=== PATIENT | male | born 1970 | race Caucasian/White ===

== ENCOUNTER 2017-02-21 10:00 | Emergency (ER) | payer OTHER ==
[~2017-02-21] VITALS: Ht 167.6 cm; Wt 81.8 kg
[2017-02-21] MEDS ORDERED: KETOROLAC 15 MG INJ IV STA (10:06)
[2017-02-21] MEDS ORDERED: SOD CHLORIDE 0.9% 1,000 ML IV STA (10:06)
[2017-02-21 10:14] VITALS: Ht 167.6 cm; Wt 81.8 kg
--- NOTE | 2017-02-21 10:24 | RADRPT ---
PROCEDURE: Chest Radiograph. CLINICAL INDICATION: Abdominal pain TECHNIQUE: Single frontal chest radiograph. COMPARISON: None available FINDINGS: The cardiomediastinal silhouette is within normal limits. No infiltrate or effusion is seen. Th e bones are intact. IMPRESSION: 1. Unremarkable chest radiograph. RPTAT: KK .Luis Velasco MD, MD Date Time Electronically viewed and signed by .Luis Velasco MD, on 02/21/2017 10:24 .B/
[2017-02-21] MEDS ORDERED: ASPIRIN 81 MG TAB PO ONE (10:30)
--- NOTE | 2017-02-21 10:30 | ERD ---
ER Documentation Chief Complaint Date/Time DATE: 02/21/17 TIME: 10:27 Chief Complaint cp, herrera, ears ringing-pt sent from the clinic HPI 46-year-old man brought in by EMS for chest pain and right-sided headache with ringing to his ears. He states the chest pain is left-sided in the size of one fingertip is nonradiating and nonexertional he has had it for over a week at this point and it has been intermittent usually lasting for about 10 minutes usually about twice a day. Headache is right-sided and has had similar headaches in the past. His PMD was worried about an abnormal EKG and referred him here. Patient uses aspirin daily denies history of IA and denies family history of early coronary artery disease or sudden cardiac . ROS All systems reviewed and are negative except as per history of present illness. Medications Home Meds Active Scripts Aspirin* (Aspirin* Chew) 81 Mg Tab.chew, 81 MG PO DAILY, #30 TAB.CHEW Prov:ED BETTS MD 02/21/17 Ibuprofen* (Ibuprofen*) 600 Mg Tablet, 600 MG PO Q8 for PAIN AND/OR INFLAMMATION , #30 TAB Prov:ED BETTS MD 02/21/17 Allergies Allergies: Coded Allergies: No Known Allergies (Verified Allergy, Unknown, 09/21/14) PMhx/Soc Dyslipidemia, hypertension Medical and Surgical Hx: pt denies Surgical Hx Hx Cardiac Disorders: Yes (htn) Hx Psychiatric Problems: No Hx Miscellaneous Medical Probl: No Hx Alcohol Use: No Hx Substance Use: No Hx Tobacco Use: No Smoking Status: Never smoker FmHx Family History: No diabetes Physical Exam Vitals Vital Signs Date Time Temp Pulse Resp B/P Pulse Ox O2 Delivery O2 Flow Rate FiO2 02/21/17 12:24 97.8 64 18 166/90 100 Room Air 02/21/17 10:14 98.1 63 18 152/104 99 Physical Exam GENERAL: Well-developed, well-nourished, well-hydrated, in no apparent distress , looks nontoxic in appearance HEENT: Moist mucous membranes, pink conjunctiva, no cervical spine tenderness or step-off deformities, no goiter, no jaundice or icterus, extraocular movements intact without pain. No submandibular induration, and no pharyngeal erythema NEURO: Alert and oriented 3, cranial nerves II through XII intact bilaterally, pupils equal round reactive to light, no focal deficits or facial asymmetry, sensation intact distally Strength 5/5 in upper and lower extremities bilaterally CARDIAC: Regular rate and rhythm, no murmurs rubs or gallops LUNGS: Clear bilaterally no wheezing crackles or stridor ABDOMEN: Soft nontender, no guarding, no rigidity, no rebound, no psoas sign no obturator sign. Normoactive bowel sounds SKIN: Warm and dry to touch, no abrasions, contusions, or hematomas, no lacerations, no ecchymosis, no target lesions, and without ulcers EXTREMITIES: No clubbing cyanosis or edema, calves are bilaterally symmetrical, no Homans sign, no popliteal cord sign. Distal pulses equal and bilateral PSYCH: Normal affect without agitation or irritability Result Diagram: 02/21/17 1010 02/21/17 1010 Results 24 hrs Laboratory Tests Test 02/21/17 10:10 White Blood Count 8.510^3/ul Red Blood Count 5.1610^6/ul Hemoglobin 14.5g/dl Hematocrit 43.9% Mean Corpuscular Volume 85.1fl Mean Corpuscular Hemoglobin 28.1pg Mean Corpuscular Hemoglobin Concent 33.0g/dl Red Cell Distribution Width 12.7% Platelet Count 35968^3/UL Mean Platelet Volume 10.5fl Neutrophils % 52.8% Lymphocytes % 35.0% Monocytes % 8.1% Eosinophils % 3.2% Basophils % 0.7% Nucleated Red Blood Cells % 0.0/100WBC Neutrophils # (Manual) 4.510^3/ul Lymphocytes # 3.010^3/ul Monocytes # 0.710^3/ul Eosinophils # 0.310^3/ul Basophils # 0.110^3/ul Nucleated Red Blood Cells # 0.010^3/ul Sodium Level 144mmol/L Potassium Level 3.9mmol/L Chloride Level 106mmol/L Carbon Dioxide Level 29mmol/L Anion Gap 13 Blood Urea Nitrogen 15mg/dl Creatinine 1.14mg/dl Glucose Level 107mg/dl Calcium Level 9.0mg/dl Total Bilirubin 0.0mg/dl Direct Bilirubin 0.00mg/dl Indirect Bilirubin 0.0mg/dl Aspartate Amino Transf (AST/SGOT) 23IU/L Alanine Aminotransferase (ALT/SGPT) 36IU/L Alkaline Phosphatase 54IU/L Troponin I < 0.012ng/ml Total Protein 7.9g/dl Albumin 4.3g/dl Globulin 3.60g/dl Albumin/Globulin Ratio 1.19 Lipase 146U/L Current Medications Medications (Trade) Dose Ordered Sig/Laura Route PRN Reason Start Time Stop Time Status Last Admin Dose Admin Sodium Chloride (NS) 1,000 ml @ 1,000 mls/hr Q1H STAT IV 02/21/17 10:06 02/21/17 11:05 DC 02/21/17 10:19 Ketorolac Tromethamine (Toradol) 15 mg ONCE STAT IV 02/21/17 10:06 02/21/17 10:07 DC 02/21/17 10:19 Aspirin (Aspirin) 162 mg ONCE ONCE PO 02/21/17 10:30 02/21/17 10:31 DC 02/21/17 10:19 Procedures/MDM IV line was established 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 Patient was afebrile. One AP view of the chest performed, read by me reveals no acute infiltrates, normal mediastinum, sharp costophrenic and cardiac borders, no air under the diaphragm. Otherwise unremarkable chest x-ray. EKG performed, read by me revealed a normal sinus rhythm at 69 bpm, normal axis , narrow QRS complex with a 0.[address] elevation in lead V2, no other elevations or depressions noted. Narrow QRS complex, unremarkable EKG.This EKG is unchanged compared to his previous EKG done in the office and in route by EMS. I administered 1 L normal saline intravenously, Toradol 15 mg IV, and aspirin 162 mg p.o. for pain control. CBC and electrolytes were normal, liver function tests normal, troponin negative. Patient has no complaints of chest pain and feels much better, his headache resolved, and he has follow-up scheduled with his PMD. The patient's history, physical exam and clinical presentation is concerning for possible cardiogenic etiology and acute coronary syndrome. Based on the patient's clinical exam and history and risk factors, I have a much lower clinical concern for pulmonary embolism, acute aortic dissection, pneumothorax, pneumonia, cardiac tamponade HEART Score: 2 MACE Rate: 1.7 Shared Decision Making: We had a conversation regarding risk stratification, MACE rate, and the risks, benefits, alternatives of disposition planning options. Disposition planning: Discharge with close follow-up with PMD and nursing assoc Differential diagnoses considered, included but not limited to acute coronary syndrome, pulmonary embolism, aortic dissection, abdominal aortic aneurysm, sepsis, stroke, meningitis, encephalitis, pneumonia, appendicitis, cholecystitis , bowel obstruction, pyelonephritis, nephrolithiasis, cystitis, as well as metabolic, hematologic, and electrolyte abnormalities. As well as abscess, cellulitis, fractures, and dislocations. Patient feels much better at this time, and vital signs are normal, symptoms have improved. I did give strict instructions to return to the ED if symptoms continue or worsen, patient will otherwise follow-up with primary care physician. Patient understood instructions and agreed to plan. Disclaimer: Inadvertent spelling and grammatical errors are likely due to EHR/ dictation software use and do not reflect on the overall quality of patient care. Also, please note that the electronic time recorded on this note does not necessarily reflect the actual time of the patient encounter. Departure Diagnosis: Primary Impression: Chest pain Chest pain type: unspecified Qualified Code: R07.9 - Chest pain, unspecified type Additional Impression: Headache Headache type: tension-type Headache chronicity pattern: acute headache Intractability: not intractable Qualified Code: G44.209 - Acute non intractable tension-type headache Condition: ED Lara MD Feb 21, 2017 10:30
[2017-02-21 10:56] LABS: ALANINE AMINOTRANSFERASE 36 IU/L (13-69); ALBUMIN 4.3 g/dl (3.3-4.9); ALBUMIN/GLOBULIN RATIO 1.19; ALKALINE PHOSPHATASE 54 IU/L (42-121); ANION GAP 13 (8-16); ASPARTATE AMINO TRANSFERASE 23 IU/L (15-46); BLOOD UREA NITROGEN 15 mg/dl (7-20); CARBON DIOXIDE 29 mmol/L (21-31); CHLORIDE 106 mmol/L (97-110); CREATININE 1.14 mg/dl (0.61-1.24); GLUCOSE 107 mg/dl (70-220); POTASSIUM 3.9 mmol/L (3.5-5.1); SODIUM 144 mmol/L (135-144); TOTAL PROTEIN 7.9 g/dl (6.1-8.1)
[2017-02-21] MEDS ORDERED: IBUP-1542 PO (11:39)
[2017-02-21] MEDS ORDERED: ASPI81TA3 PO (11:39)
[2017-02-21 11:50] LABS: TROPONIN-I < 0.012 ng/ml (0.00-0.12)
[2017-02-21 12:24] VITALS: BP 166/90; PULSE 64; RESP 18; TEMP 97.8
== END 2017-02-21 12:27 | disposition home or self-care (01) ==
LOC: E/R 10:00
DX: R07.9 Chest pain, unspecified (principal); G44.209 Tension-type headache, unspecified, not intractable; I10 Essential (primary) hypertension; Z79.82 Long term (current) use of aspirin
CPT/HCPCS: 36415; 71010; 80053; 83690; 84484; 93005; 96374; J1885; J7030; Z7502; Z7610; 85025